=== PATIENT | male | born 2000 | race Asian ===

== ENCOUNTER 2019-05-13 18:30 | Inpatient (IN) | payer OTHER ==
--- NOTE | 2019-05-13 18:55 | ED ---
HPI Chest Pain - HPI Summary HPI Summary: This pt is a 18 y/o male presenting to [facility] via [place] from [facility] for a pneumothorax. Pt reports he was outside walking when he began to cough a little and had sudden onset of chest pain at 1800 yesterday. He notes associated symptoms of SOB. Pt went to [facility] where he had a chest XR that resulted in right sided pneumothorax. Denies fever, chills, erythema of eyes, sore throat, abd pain, nausea, vomiting, dysuria, hematuria, myalgia, edema, rash or dizziness. The last time he ate or drank was at 1500 today. Pt states there was a time when he was coughing and had chest pain during this past summer in [place] but did not have to be hospitalized. Denies any PMHx. Denies taking any medications. Denies any PSHx. - History of Current Complaint Chief Complaint: EDChestWallPain Hx Obtained From: Patient Onset/Duration: Started Days Ago - 1, Still Present Timing: Lasting Days - 1 Current Severity: Moderate Pain Intensity: 6 Pain Scale Used: 0-10 Numeric Chest Pain Location: Diffuse Chest Pain Radiates: No Aggravating Factor(s): Nothing Alleviating Factor(s): Nothing Associated Signs and Symptoms: Positive: Chest Pain, Shortness of Breath, Cough. Negative: Dizziness, Swelling, Fever, Chills, Nausea, Palpitations, Abdominal Pain, Vomiting - Allergy/Home Medications Allergies/Adverse Reactions: Allergies Allergy/AdvReac Type Severity Reaction Status Date / Time "antibiotics" Allergy GI Upset Uncoded 05/13/19 18:43 Home Medications: Home Medications NK [No Home Medications Reported] 05/13/19 [History Confirmed 05/13/19] PMH/Surg Hx/FS Hx/Imm Hx Endocrine/Hematology History: Denies: Hx Diabetes Cardiovascular History: Denies: Hx Hypertension - Surgical History Surgical History: None Infectious Disease History: No Infectious Disease History: Denies: Traveled Outside the [place] in Last 30 Days - Family History Known Family History: Positive: Non-Contributory - Social History Alcohol Use: None Substance Use Type: Reports: None Smoking Status (MU): Never Smoked Tobacco Review of Systems Negative: Fever, Chills Negative: Erythema Negative: Sore Throat Positive: Chest Pain Positive: Shortness Of Breath, Cough Negative: Abdominal Pain, Vomiting, Nausea Negative: dysuria, hematuria Negative: Myalgia, Edema Negative: Rash Neurological: Other - NEGATIVE: dizziness All Other Systems Reviewed And Are Negative: Yes Physical Exam - Summary Physical Exam Summary: Constitutional: Well-developed, Well-nourished, Alert. (-) Distressed Skin: Warm, Dry HENT: Normocephalic; Atraumatic Eyes: Conjunctiva normal Neck: Musculoskeletal ROM normal neck. (-) JVD, (-) Stridor, (-) Tracheal deviation Cardio: Rhythm regular, rate normal, Heart sounds normal; Intact distal pulses; The pedal pulses are 2+ and symmetric. Radial pulses are 2+ and symmetric. (-) Murmur Pulmonary/Chest wall: (-) Respiratory distress, (-) Wheezes, (-) Rales. Diminished breath sounds on the right. Abd: Soft, (-) tenderness, (-) Distension, (-) Guarding, (-) Rebound Musculoskeletal: (-) Edema Lymph: (-) Cervical adenopathy Neuro: Alert, Oriented x3 Psych: Mood and affect Normal Triage Information Reviewed: Yes Vital Signs On Initial Exam: Initial Vitals Temp Pulse Resp BP Pulse Ox 98.9 F 67 18 148/73 100 05/13/19 18:40 05/13/19 18:40 05/13/19 18:40 05/13/19 18:40 05/13/19 18:40 Vital Signs Reviewed: Yes Procedures - Sedation Patient Received Moderate/Deep Sedation with Procedure: No Diagnostics - Vital Signs Vital Signs Temp Pulse Resp BP Pulse Ox 05/13/19 18:40 98.9 F 67 18 148/73 100 - Laboratory Result Diagrams: 05/13/19 18:41 05/13/19 18:41 Lab Statement: Any lab studies that have been ordered have been reviewed, and results considered in the medical decision making process. - Radiology Chest XR Radiology Interpretation Completed By: ED Physician Summary of Radiographic Findings: Total collapse of the right lobe. - EKG 1845 Cardiac Rate: NL - at 85 bpm EKG Rhythm: Sinus Rhythm Summary of EKG Findings: EKG at 184 shows normal sinus rhythm at a rate of 85 bpm. No STEMI. Chest Pain Course/Dx - Course Assessment/Plan: pt is a 18 y/o male presenting to [facility] via EMS from [facility] for a pneumothorax. Pt reports he was outside walking when he began to cough a little and had sudden onset of chest pain at 1800 yesterday. He notes associated symptoms of SOB. Pt went to [facility] where he had a chest XR that resulted in right sided pneumothorax. Blood work was obtained. Chest XR here shows total collapse of right lung. In the ED course the pt was given Fentanyl. Dr. Shirley, surgeon, came and placed a chest tube. Dr. Shirley admitted the pt to her services. - Diagnoses Provider Diagnoses: Spontaneous pneumothorax - Critical Care Time Critical Care Time: 30-74 min - 60 minutes Discharge ED - Sign-Out/Discharge Documenting (check all that apply): Patient Departure - Admit to [facility] All imaging exams completed and their final reports reviewed: No - Discharge Plan Condition: Stable Disposition: ADMITTED TO [facility] - Attestation Statements Document Initiated by Scribe: Yes Documenting Scribe: Myra Bartholomew Provider For Whom Scribe is Documenting (Include Credential): Raymundo Marrero MD Scribe Attestation: Myra Sidhu, scribed for Raymundo Marrero MD on 05/13/19 at 2140. Status of Scribe Document: Ready
[2019-05-13 18:56] LABS: Hematocrit 47 % (42-52); Hemoglobin 16.2 g/dL (14.0-18.0); Mean Corpuscular HGB Conc 34 g/dL (31-36); Mean Corpuscular Hemoglobin 30 pg (27-31); Mean Corpuscular Volume 87 fL (80-94); Mean Platelet Volume 6.6 fL (7.4-10.4); Platelet Count 275 10^3/uL (150-450); Red Blood Count 5.42 10^6 /uL (4.18-5.48); Red Cell Distribution Width 13 % (10-15)
[2019-05-13] MEDS ORDERED: fentaNYL* 50 MCG/ML 2 ML VIAL (100 MCG VIAL) IV SLOW PU ONE (19:00)
[2019-05-13] MEDS ORDERED: NS 0.9% 500 ML* 500 ML IV ONE (19:01)
[2019-05-13] MEDS ORDERED: fentaNYL* 50 MCG/ML 2 ML VIAL (100 MCG VIAL) ONE (19:03)
[2019-05-13 19:10] LABS: ALT 6 U/L (7-52); Alkaline Phosphatase 54 U/L (34-104); BUN/Creatinine Ratio 9.5 (8-20); Blood Urea Nitrogen 11 mg/dL (6-24); CO2 Carbon Dioxide 29 mmol/L (22-32); Calcium 10.3 mg/dL (8.6-10.3); Chloride 105 mmol/L (101-111); EGFR African American 98.1 (>60); EGFR Non-African American 81.1 (>60); Globulin 2.5 g/dL (2-4); Glucose 100 mg/dL (70-100); Sodium 140 mmol/L (135-145); Total Protein 7.5 g/dL (6.4-8.9)
[2019-05-13 19:12] LABS: Anion Gap 6 mmol/L (2-11)
--- NOTE | 2019-05-13 19:27 | HP ---
Review of Systems - Medications/Allergies Allergies/Adverse Reactions: Allergies Allergy/AdvReac Type Severity Reaction Status Date / Time "antibiotics" Allergy GI Upset Uncoded 05/13/19 18:43 Medications: Current Medications Sodium Chloride (Ns 0.9% 500 Ml*) 500 mls @ 1,000 mls/hr IV ONCE ONE Stop: 05/13/19 19:30 Exam - Exam Vital Signs: Vital Signs (72 hours) 05/13/19 18:40 Temperature 98.9 F Pulse Rate 67 Respiratory 18 Rate Blood Pressure 148/73 (mmHg) O2 Sat by Pulse 100 Oximetry
[2019-05-13] MEDS ORDERED: Lidocaine 1% INJ* 10 MG/ML 30 ML SDV ONE (19:51)
[2019-05-13] MEDS ORDERED: HYDROmorphone INJ* 0.5 MG/0.5 ML SYRINGE IV SLOW PU PRN (20:07)
[2019-05-13] MEDS ORDERED: Docusate CAP* 100 MG PO PRN (20:07)
[2019-05-13] MEDS ORDERED: Acetaminophen TAB* 325 MG PO PRN (20:07)
--- NOTE | 2019-05-13 20:49 | HP ---
HISTORY AND PHYSICAL: DATE OF ADMISSION: 05/13/19 SERVICE: General Surgery. ATTENDING SURGEON: Dr. Beti Shirley. REASON FOR ADMISSION: Right pneumothorax. HISTORY OF PRESENT ILLNESS: Mr. Marcelo is a very pleasant and healthy 18-year-old gentleman, who [facility] with complaints of having chest pain and shortness of breath that began yesterday evening. He said that he was outside walking and he started coughing and he suddenly developed some chest pain. He said that the chest pain and shortness of breath continued throughout the night and the next day; therefore, he eventually presented to [facility] for [facility]. He had a chest x-ray done that showed he had a right pneumothorax and then was sent to the emergency room. Currently, he says that he is feeling that he has shortness of breath and pain on his left chest wall. PAST MEDICAL HISTORY: None. PAST SURGICAL HISTORY: None. MEDICATIONS: None. ALLERGIES: ANTIBIOTICS, he does not know which ones. FAMILY HISTORY: Noncontributory. SOCIAL HISTORY: The patient is a sophomore at [employer]. He is from [place]. He denies smoking or any recreational or IV drug use. REVIEW OF SYSTEMS: Negative except for shortness of breath. PHYSICAL EXAMINATION GENERAL: This is a young man, lying in bed, in no great distress. VITAL SIGNS: Temperature is 98.8, pulse is 67, respiratory rate is 18, O2 sat is 100% O2 on 15 L nasal cannula, blood pressure is 148/73. HEENT: Normocephalic, atraumatic. RESPIRATORY: No breath sounds auscultated on the right side. Positive breath sounds on the left. CARDIOVASCULAR: Regular rate and rhythm. DIAGNOSTIC STUDIES/LAB DATA: White blood cell count is 7, hemoglobin is 16.2, hematocrit is 47, platelets 275. BMP is within normal limits. Chest x-ray: There is no final read, but it does show that there is collapse of the right lung. ASSESSMENT AND PLAN: Mr. Marcelo is a 18-year-old gentleman, who presents with a large right pneumothorax. He is a nonsmoker and he has no history of pneumothorax in the past; therefore, this is a spontaneous first time pneumothorax. He gave informed consent for placement of a right chest tube. He understood that the risks included, but were not limited to, bleeding, infection, and injury to nearby structures. He will be admitted after this procedure given how large his pneumothorax is and discharged once he is stable and demonstrates resolution of the pneumothorax so that the chest tube can be removed. [id number]/[facility] #: [id number] AYAD
--- NOTE | 2019-05-13 21:24 | PRO ---
DATE OF PROCEDURE: 05/13/19 - ROOM #334 SURGEON: Beti Shirley MD. TRENCHER DRIVER: ARCHIE Avila. CATHETER: An 8-Belizean catheter in the right pleural cavity. PRE-PROCEDURE DIAGNOSIS: Right pneumothorax. POST PROCEDURE DIAGNOSIS: Right pneumothorax. PROCEDURE PERFORMED: INDICATIONS FOR PROCEDURE: Mr. Marcelo is a 18-year-old gentleman who presented to the emergency room with a spontaneous first time right pneumothorax that caused a complete collapse of the lung. He therefore gave informed consent for a placement of right chest tube. He understood the risks included but were not limited to bleeding, infection, injury to nearby structures. He understood and wished to proceed. DESCRIPTION OF PROCEDURE: The patient was laid supine on the stretcher. His right chest wall below the clavicle was prepped and draped in normal sterile fashion. A time-out was performed prior to performing the procedure to verify that the patient's name, date of , and the procedure which was a right chest tube placement. Next, 1% lidocaine was infiltrated into the subcutaneous tissue in his second intercostal space in approximately the mid clavicular line. A small skin incision was made and then the 8-Belizean catheter was advanced through the skin, subcutaneous tissue and the chest wall. A 5 cc syringe at the end of the catheter was used to aspirate while the needle and the catheter was advanced. Once air was easily aspirated into the syringe, the needle was slightly advanced and then the catheter was guided over the needle into the pleural cavity. The catheter was then connected to a three way stop cock and tubing which was then connected to the Pleur-evac and placed on suction. There were air bubbles in the Pleur-evac confirming that the air was being evacuated. The catheter was secured to the chest wall using sutures and then dressing was then placed to keep it secure. At the end of the procedure, a chest x-ray was performed. I reviewed this chest x-ray and it did show that there was resolution of the right pneumothorax. The patient tolerated this procedure and will be admitted for observation. [id number]/[facility] #: [id number] [facility]
[2019-05-13] MEDS: oxyCODONE/Acetamin 5/325 MG* TAB PO PRN (22:22)
[2019-05-13 23:45] LABS: HIV 4th Generation Nonreactive (Nonreactive)
[2019-05-13 23:56] LABS: Hepatitis B Surface Ab Not Immune (Immune); Hepatitis C Antibody Negative (Negative)
[2019-05-14] MEDS: Ondansetron INJ* 2 MG/ML VIAL IV PRN ×2 (00:33→14:37)
[2019-05-14] MEDS: oxyCODONE/Acetamin 5/325 MG* TAB PO PRN (07:39)
--- NOTE | 2019-05-14 07:40 | PN ---
Progress Note - Progress Note Date of Service: 05/14/19 Note: Surgery Progress Note S: Patient complains of pain at the site where the 8F tube is placed. Otherwise he feels better and is breathing better. Complain of IV in hand. O: Vital Signs - 24 hr 05/13/19 05/13/19 05/13/19 18:36 18:40 18:44 Temperature 98.9 F Pulse Rate 75 67 67 Respiratory 25 18 27 Rate Blood Pressure 148/73 148/73 (mmHg) O2 Sat by Pulse 100 100 100 Oximetry 05/13/19 05/13/19 05/13/19 18:59 19:00 19:14 Temperature Pulse Rate 77 73 76 Respiratory 35 28 27 Rate Blood Pressure 141/70 153/80 (mmHg) O2 Sat by Pulse 100 100 97 Oximetry 05/13/19 05/13/19 05/13/19 19:25 19:29 19:44 Temperature Pulse Rate 83 78 Respiratory 30 31 20 Rate Blood Pressure 146/69 146/80 (mmHg) O2 Sat by Pulse 100 100 Oximetry 05/13/19 05/13/19 05/13/19 19:59 20:00 20:13 Temperature Pulse Rate 71 72 65 Respiratory 26 31 31 Rate Blood Pressure 153/75 142/70 (mmHg) O2 Sat by Pulse 100 100 100 Oximetry 05/13/19 05/13/19 05/13/19 20:14 20:29 20:56 Temperature 98.0 F Pulse Rate 63 86 86 Respiratory 32 40 18 Rate Blood Pressure 137/76 136/84 140/79 (mmHg) O2 Sat by Pulse 100 100 100 Oximetry 05/13/19 05/13/19 05/13/19 21:14 22:22 23:00 Temperature 98 F 98.2 F Pulse Rate 59 76 Respiratory 18 18 18 Rate Blood Pressure 147/65 141/63 (mmHg) O2 Sat by Pulse 100 100 Oximetry 05/14/19 05/14/19 05/14/19 00:24 01:59 02:02 Temperature Pulse Rate Respiratory 19 19 19 Rate Blood Pressure (mmHg) O2 Sat by Pulse Oximetry 05/14/19 05/14/19 03:00 07:00 Temperature 98 F 98.2 F Pulse Rate 61 70 Respiratory 19 16 Rate Blood Pressure 144/63 123/72 (mmHg) O2 Sat by Pulse 99 98 Oximetry Intake & Output 05/13/19 05/14/19 05/14/19 22:59 06:59 14:59 Intake Total 500 Output Total 0 200 Balance 0 300 Weight 158 lb 3.2 oz Intake: Oral 500 Output: Chest Tube #1 0 Urine 200 Laboratory Results - last 24 hr 05/13/19 05/13/19 05/13/19 18:41 18:41 18:41 WBC 7.0 RBC 5.42 Hgb 16.2 Hct 47 MCV 87 MCH 30 MCHC 34 RDW 13 Plt Count 275 MPV 6.6 L Sodium 140 Potassium TNP Chloride 105 Carbon Dioxide 29 Anion Gap 6 BUN 11 Creatinine 1.16 Est GFR ( Amer) 98.1 Est GFR (Non-Af Amer) 81.1 BUN/Creatinine Ratio 9.5 Glucose 100 Calcium 10.3 Total Bilirubin 0.50 AST TNP ALT 6 L Alkaline Phosphatase 54 Total Protein 7.5 Albumin 5.0 Globulin 2.5 Albumin/Globulin Ratio 2.0 Hepatitis B Antibody Not immune A Hepatitis C Antibody Negative Hepatitis C Ab Index 0.03 HIV 1&2 Ab/P24 Ag 4thGn Nonreactive Physical exam: Chest tube in place, no air leak. Breath sounds bilaterally, increased on left A/P: 18 M with right spontaneous PTX, s/p chest tube. - CXR this AM. If no PTX will take chest tube off suction and patient can walk around. - Likely DC chest tube tomorrow if no evidence of PTX after being off suction for 24 hours. - Continue regular diet - OOB and ambulate
[2019-05-14 12:26] LABS: Hepatitis B Surface Antigen Nonreactive (Nonreactive)
--- NOTE | 2019-05-15 12:44 | PN ---
Progress Note - Progress Note Date of Service: 05/15/19 Note: Surgery Progress Note I saw the patient earlier this morning at 8:30am S: Patient is feeling better. He has less pain and feels constipated. He is not having difficulty breathing. O: Vital Signs - 24 hr 05/14/19 05/14/19 05/14/19 16:50 16:56 19:30 Temperature 98.5 F 98.5 F Pulse Rate 73 73 63 Respiratory 22 22 22 Rate Blood Pressure 115/56 115/56 113/48 (mmHg) O2 Sat by Pulse 98 98 98 Oximetry 05/14/19 05/14/19 05/15/19 20:40 23:59 04:00 Temperature 98 F 97.6 F Pulse Rate 59 49 Respiratory 16 16 16 Rate Blood Pressure 115/55 113/50 (mmHg) O2 Sat by Pulse 99 99 Oximetry 05/15/19 05/15/19 05/15/19 07:42 08:00 12:00 Temperature 98.1 F 98.4 F Pulse Rate 50 54 Respiratory 22 22 24 Rate Blood Pressure 114/62 116/54 (mmHg) O2 Sat by Pulse 99 99 Oximetry Intake & Output 05/14/19 05/15/19 05/15/19 22:59 06:59 14:59 Intake Total 600 240 Output Total 250 200 Balance -250 400 240 Intake: Oral 600 240 Output: Urine 250 200 Physical exam: Breath sounds present bilaterally, somewhat decreased on the right. No air leak. CXR: reviewed, stable small right apical PTX A/P: 18 M with right spontaneous PTX (complete collapse) s/p right chest tube. - Will place on water seal and obtain CXR in 4 hours. If there is no expansion of the PTX, will clamp the chest tube and obtain another CXR after 4 hours. If his PTX remains stable then he can potentially have chest tube removed tomorrow.
[2019-05-15] MEDS: Polyethylene Glycol 3350* 17 GM PACKET PO PRN (15:41)
--- NOTE | 2019-05-16 07:49 | PN ---
Progress Note - Progress Note Date of Service: 05/16/19 Note: Surgery Progress Note S: Patient is feeling much better today after being able to have a bowel movement (miralax helped). He did not have shortness of breath when the chest tube was on water seal x 4 hours yesterday. After water seal the apical PTX was slightly larger and the chest tube was put back on suction. His mom arrived from [place] yesterday. He has been ambulating. O: Vital Signs - 24 hr 05/15/19 05/15/19 05/15/19 08:00 12:00 15:51 Temperature 98.4 F 97.8 F Pulse Rate 54 63 Respiratory 22 24 16 Rate Blood Pressure 116/54 120/50 (mmHg) O2 Sat by Pulse 99 100 Oximetry 05/15/19 05/15/19 05/15/19 19:17 19:40 23:40 Temperature 97.9 F 97.9 F Pulse Rate 55 63 Respiratory 18 16 16 Rate Blood Pressure 114/55 123/57 (mmHg) O2 Sat by Pulse 99 100 Oximetry 05/16/19 03:14 Temperature 98.1 F Pulse Rate 47 Respiratory 16 Rate Blood Pressure 116/49 (mmHg) O2 Sat by Pulse 100 Oximetry Intake & Output 05/15/19 05/16/19 05/16/19 22:59 06:59 14:59 Intake Total 480 480 Output Total 305 0 Balance 175 480 Intake: Oral 480 480 Output: Chest Tube #1 5 0 Urine 300 0 Physical exam: No increased work of breathing, chest tube in place, no air leak CXR: I reviewed this morning's CXR, PTX is smaller at the apex on right A/P: 18 M with first time spontaneous right PTX, doing well. 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 - I will be away 05/17-, [facility] to cover while I am away. I discussed this with patient and mother
[2019-05-16] MEDS: Polyethylene Glycol 3350* 17 GM PACKET PO PRN (18:10)
--- NOTE | 2019-05-17 12:36 | PN ---
Progress Note - Progress Note Date of Service: 05/17/19 Note: S: no changes; denies significant pain or SOB. Bowels working. O: Vital Signs - 8 hr 05/17/19 05/17/19 05/17/19 07:38 09:15 11:20 Temperature 98.3 F 97.6 F Pulse Rate 56 63 Respiratory 16 16 16 Rate Blood Pressure 105/56 120/65 (mmHg) O2 Sat by Pulse 99 100 Oximetry Intake and Output Last 24 Hours 05/15/19 05/16/19 05/17/19 05/18/19 06:59 06:59 06:59 06:59 Intake Total 1120 1260 600 240 Output Total 800 305 Balance 320 955 600 240 Intake: Oral 1120 1260 600 240 Output: Chest Tube #1 0 5 Urine 800 300 Other: Estimated Void Large Medium Medium # Bowel Movements 0 0 # Voids 1 3 1 Heart: reg Lungs: clear; small intermittent airleak xray this a.m: small increase in R apical ptx A: right ptx w/ persistent, though small, airleak P: discussed w/ Dr. Mccarty, who reviewed xray. Will change to Heimlich valve only and recheck xray after 4 h. Patient understands.
--- NOTE | 2019-05-18 14:14 | PN ---
Progress Note - Progress Note Date of Service: 05/18/19 SOAP: Subjective: No pain. No SOB. Objective: Vital Signs Temp 98 F 05/18/19 11:31 Pulse 61 05/18/19 11:31 Resp 16 05/18/19 11:31 BP 110/55 05/18/19 11:31 Pulse Ox 99 05/18/19 11:31 Gen: NAD Chest: CTA; tube in place; No A/L noted. Intake & Output 05/17/19 05/18/19 05/18/19 18:59 06:59 18:59 Intake Total 240 500 Balance 240 500 Intake: Oral 240 500 Other: Estimated Void Medium Medium # Voids 1 2 CXR image reviewed. No PTX seen. Assessment: Spontaneous PTX, Rt side. Improved with chest tube on suction. Plan: Will cont suction until tomorrow. Repeat CXR off suction tomorrow. If stable may d/c tube tomorrow.
--- NOTE | 2019-05-19 13:04 | PN ---
Progress Note - Progress Note Date of Service: 05/19/19 SOAP: Subjective: Mild chest pain. Reports some SOB when off suction. Nurses state he is asking for NC O2 at times. Mother at bedside. 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 Objective: Vital Signs Temp 99.3 F 05/19/19 12:27 Pulse 53 05/19/19 12:27 Resp 18 05/19/19 12:27 BP 111/52 05/19/19 12:27 Pulse Ox 100 05/19/19 12:27 Chest: tube in place. No kinking. Heimlich in line. Connected to PleurEvac. No A/L with valsalva. Intake & Output 05/18/19 05/19/19 05/19/19 18:59 06:59 18:59 Intake Total 750 1200 460 Output Total 4 0 Balance 750 1196 460 Intake: Oral 750 1200 460 Output: Chest Tube #1 4 Urine 0 0 Other: Estimated Void Large Large # Voids 1 CXR small apical PTX. Assessment: HD#6 R spontaneous PTX. Continues to have mild collapse when off suction. He would not be safe to fly and I suspect he may need VATS. Plan: Transfer to [facility] for Thoracic Surgery consultation and possible VATS. Discussed with patient, mother and by phone with Bill Gerard MD at [facility] who agrees and has accepted the transfer. At request of mother, I also discussed the situation with the patient's aunt in [place], [place] (Francia Garrison, ). Transfer summary dictated. D/w stress test technician to have films "pushed" to [facility].
--- NOTE | 2019-05-19 14:42 | TRS ---
TRANSFER SUMMARY: DATE OF ADMISSION: 05/13/19 DATE OF TRANSFER: 05/19/19 DISCHARGE DIAGNOSIS: Right spontaneous pneumothorax. PROCEDURE: Right chest tube placement on 05/13/[address] Shirley. HOSPITAL COURSE: Mr. Marcelo is a 18-year-old gentleman, who presented to [facility] with chest pain, shortness of breath for 1 day. He presented to [facility] for evaluation , had a chest x-ray that showed right pneumothorax and was directed to the emergency room. In the em ergency room, he was evaluated by Dr. Shirley and the diagnosis was confirmed and she placed an 8-Indonesian pneumothorax catheter. There was initial resolution of the pneumothorax and the patient was admitted for observation. Over the course of the next 6 days, the patient failed attempts to remove the ches t tube from Pleur-evac suction. As the patient is an international student and flies frequently, it was felt that further delay in Thoracic Surgery involvement would be detrimental. Therefore, a call was placed to Dr. Bill Gerard, thoracic surgeon at [facility] and after discussing the c ase with him, Dr. Gerard has agreed to have the patient transferred to his service. The situation was explained to the patient and his mother who accompanies him. They are in agreement. At the time of assessment for the transfer, the patient was reporting only mild chest pain. Temperat ure was 99.3, pulse of 53, respirations 18, O2 saturation was 100% on room air, blood pressure was 11 1/52. His chest tube/pneumothorax catheter was connected via Heimlich valve to a Pleur-evac suction. There was no obvious air leak noted with Valsalva. Chest x-ray from 05/19/19 at 11:30 a.m. demonstrated residual right apical pneumothorax. Chest x-ray from 05/18/19 at 6 a.m. had no demonstrated a pneumothorax. The patient had no tests pending at the time of transfer. He was being transferred to [facility] in stable condition. [id number]/[facility] #: [id number]
[2019-05-19 15:57] VITALS: BP 113/47
== END 2019-05-19 16:00 | disposition short-term general hospital (02) | DRG 200 ==
LOC: ED 18:30 → SSU 20:07
PROVIDERS: ADMIT Surgery; ATTEND Surgery
PROC: 0W9930Z Drainage of Right Pleural Cavity with Drainage Device, Percutaneous Approach (ICD-10-PCS; principal; 2019-05-13)
DX: J93.83 Other pneumothorax (principal); J98.19 Other pulmonary collapse; Z88.1 Allergy status to other antibiotic agents
CPT/HCPCS: 36415; 71045; 71046; 80053; 85027; 86706; 86803; 87340; 87389; 93005; 99284; A9270-GY; J1170; J2405; J3010